=== PATIENT | female | born 1955 | race Caucasian/White ===

== ENCOUNTER 2017-02-01 11:00 | Day surgery (SDC) | payer BC ==
[2017-02-01] MEDS ORDERED: Gatifloxacin 0.5% Ophth Soln 2.5 ML Bot EYERT SCH (11:15)
[2017-02-01] MEDS ORDERED: Sodium Chloride 0.9% 5 ML Syringe FLUSH PRN (11:15)
[2017-02-01] MEDS ORDERED: Lactated Ringers 1,000 ML IV SCH (11:15)
[2017-02-01] MEDS: Cyclopentolate 1% Opth Soln 2 ML Bottle EYERT SCH ×3 (12:11→12:53)
[2017-02-01] MEDS: Phenylephrine 10% Ophth Soln 5 ML Bot EYERT SCH ×3 (12:18→13:10)
[2017-02-01] MEDS ORDERED: Water For Irrigation,Sterile 1,500 ML Container IRR ONE (14:24)
[2017-02-01] MEDS ORDERED: Balanced Salt Solution Plus Ophth Irrig 500 ML Bottle IOCULAR ONE (14:24)
[2017-02-01] MEDS ORDERED: Balanced Salt Solution Ophth Irrig 15 ML Bottle EYERT ONE (14:24)
[2017-02-01] MEDS ORDERED: EPINEPHrine 1 MG/ML SDV ONE (14:25)
[2017-02-01] MEDS ORDERED: Dexamethasone/Neomycin/Polymyxin B Ophth Oint 3.5 GM Tube EYERT ONE (14:25)
[2017-02-01] MEDS ORDERED: Carbachol 0.01% Intraocular 1.5 ML Vial EYERT ONE (14:25)
[2017-02-01] MEDS ORDERED: Tetracaine 0.5% 2 ML Bottle EYEBOTH ONE (14:25)
[2017-02-01] MEDS ORDERED: Hyaluronate Sodium 1% 0.85 ML Syringe IOCULAR ONE (14:26)
[2017-02-01] MEDS ORDERED: Lidocaine 1% 10 ML MDV INJECT ONE (14:26)
[2017-02-01] MEDS ORDERED: Lidocaine 2% with EPINEPHrine 1:100,000 20 ML MDV INJECT ONE (14:26)
[2017-02-01 14:39] VITALS: BP 138/58
--- NOTE | 2017-02-02 09:51 | OR ---
DATE OF SURGERY: 02/01/2017 SURGEON: Santiago Mcdaniels MD PREOPERATIVE DIAGNOSIS: Cataract, right eye. POSTOPERATIVE DIAGNOSIS: Cataract, right eye. OPERATION PERFORMED: Phacoemulsification with posterior chamber lens insertion, right eye. FINDINGS: The patient was taken to the operating room where appropriate anesthesia, sedation and monitoring were provided. A retrobulbar block was given on the right side. The eye was massaged and was found to be appropriately soft. The eye and eyelids were then prepped and draped in the usual sterile manner. A lid speculum was placed. A micro sharp blade was used to enter the anterior chamber inside the limbus superior-temporally. Xylocaine was irrigated into the eye at this site. Healon was irrigated into the eye through this site. Then using a 2.85 mm corneal blade an entry was made into the anterior chamber just inside the limbus temporally. Healon was again irrigated into the eye. Then using a cystitome, the anterior capsulorrhexis was created. The lens nucleus was hydrodissected using a 27 gauge cannula and balanced salt solution. The phacoemulsification unit was introduced through the temporal site and the Girma spatula through the superior temporal site. In so doing, the lens nucleus was phacoemulsified. The cortical fragments of the lens were removed using the irrigation aspiration unit. The posterior capsule was polished. Healon was irrigated into the eye. The posterior chamber lens was inserted and rotated into position inside the capsular bag. The Healon was irrigated out of the eye. Miostat was irrigated into the eye and the pupil rounded nicely. A single interrupted 10-0 Nylon suture was placed through the temporal corneal incision site. Balanced salt solution was irrigated into the eye. The wound was tested and found to be tight. Maxitrol ointment was placed into the patient's right eye. The eyelids were closed and an eye patch and maldonado shield were placed. The patient left the operating room in good condition. /[id number]/MODL
== END 2017-02-01 14:58 | disposition home or self-care (01) ==
LOC: KA.SDS 11:00
PROVIDERS: ATTEND Ophthalmology
DX: H26.9 Unspecified cataract (principal); I25.10 Atherosclerotic heart disease of native coronary artery without angina pectoris; K21.9 Gastro-esophageal reflux disease without esophagitis; I10 Essential (primary) hypertension; Z88.1 Allergy status to other antibiotic agents; Z88.0 Allergy status to penicillin; Z88.8 Allergy status to other drugs, medicaments and biological substances; Z79.899 Other long term (current) drug therapy; F17.200 Nicotine dependence, unspecified, uncomplicated
CPT/HCPCS: 66984; A9270; J0171; J7120; V2632

== ENCOUNTER 2019-11-17 07:04 | Emergency (ER) | payer BC ==
[2019-11-17 07:20] VITALS: BP 154/79; PULSE 70
--- NOTE | 2019-11-17 07:29 | EDM.PDOC ---
ED HPI GENERAL MEDICAL PROBLEM - General Chief Complaint: General Stated Complaint: dizziness Time Seen by Provider: 11/17/19 07:29 Source of Information: Reports: Patient History Limitations: Reports: No Limitations - History of Present Illness INITIAL COMMENTS - FREE TEXT/NARRATIVE: Awoke this morning as usual, taking daily medications. States dizziness was noted and worsened with positioning, predominantly looking down. Has been experiencing some laryngitis this past week with voice returning the past couple days, questionings seasonal allergy issues for which she takes an [id number] medication nightly. She has had some postnasal drip but not truly what would be considered sinus infection type drainage. She denies any palpitations acknowledging a sinus arrhythmia but it does not seem to have been bothering her lately. She denies any issues with dehydration risks as she states she has had good intake and has not been active outside in the recent heat. Denies any pain, no headache, no chest pain or shortness of breath. Has not used nebulizer since last winter for a bronchitis issue. Is somewhat question aspects of allergy component feeling full in her head as well as the laryngitis event resolving. 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 Onset: Today, Sudden Duration: Minutes: Location: Reports: Head Quality: Reports: Other Severity: Moderate Improves with: Reports: None Worsens with: Reports: Movement Associated Symptoms: Reports: No Other Symptoms - Related Data Allergies Allergy/AdvReac Type Severity Reaction Status Date / Time NEERAJ Inhibitors Allergy UNKNOWN Verified 11/17/19 07:21 azithromycin Allergy Rash Verified 11/17/19 07:21 cefdinir Allergy UNKNOWN Verified 11/17/19 07:21 clindamycin Allergy Itching Verified 11/17/19 07:21 nitrofurantoin Allergy UNKOWN Verified 11/17/19 07:21 [From Macrobid] Penicillins Allergy Rash Verified 11/17/19 07:21 sulfamethoxazole Allergy Rash Verified 11/17/19 07:21 [From Bactrim] trimethoprim [From Bactrim] Allergy Rash Verified 11/17/19 07:21 Home Meds: Home Meds Albuterol [IJD: Albuterol] 2.5 mg INH Q4H PRN 01/31/17 [History] Clobetasol Propionate [Temovate] 30 gm TP TID PRN 01/31/17 [History] L.acidoph,Paracasei, B.lactis [Probiotic] 1 each PO DAILY 01/31/17 [History] Losartan Potassium 100 mg PO DAILY 01/31/17 [History] Nystatin [Nystatin Crm] 15 gm TOP TID PRN 01/31/17 [History] Omeprazole 20 mg PO DAILY 01/31/17 [History] Triamcinolone Acetonide [Triamcinolone Acetonide 0.1% Crm] 15 gm TOP TID PRN 01/31/17 [History] cloNIDine [Catapres] 0.1 mg PO BID 04/13/19 [History] Meclizine HCl 25 mg PO Q6HR PRN 7 Days #20 tablet 11/17/19 [Rx] Ondansetron [Zofran ODT] 4 mg PO Q6H PRN 7 Days #20 tab.dis 11/17/19 [Rx] Past Medical History HEENT History: Reports: Allergic Rhinitis, Cataract, Impaired Vision Cardiovascular History: Reports: Hypertension Respiratory History: Reports: Bronchitis, Recurrent Gastrointestinal History: Reports: Colon Polyp, GERD Genitourinary History: Reports: UTI, Recurrent 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 History: Reports: None Dermatologic History: Reports: Eczema - Infectious Disease History Infectious Disease History: Reports: None - Past Surgical History HEENT Surgical History: Reports: None Cardiovascular Surgical History: Reports: None GI Surgical History: Reports: Colonoscopy Female Surgical History: Reports: None Dermatological Surgical History: Reports: None - Past Imaging History Past Imaging History: Reports: Xray Social & Family History - Family History Family Medical History: Noncontributory - Caffeine Use Caffeine Use: Reports: Coffee ED ROS GENERAL - Review of Systems Review Of Systems: Comprehensive ROS is negative, except as noted in HPI. ED EXAM, GENERAL - Physical Exam Exam: See Below Free Text/Narrative:: Bilateral Nilan Barany testing completed, negative for inducing any nystagmus. When returning to seated position mild dizziness with nausea occurs. PERRLA no icterus no injection, EOM intact. No noted visual deficits or changes. General Appearance: Alert, WD/WN, No Apparent Distress Ears: Normal External Exam, Normal Canal, Hearing Grossly Normal. No: Normal TMs (Mildly retracted no infection) Nose: Normal Inspection, Normal Mucosa, No Blood Throat/Mouth: Normal Inspection, Normal Lips, Normal Teeth, Normal Gums, Normal Oropharynx, Normal Voice, No Airway Compromise Head: Atraumatic, Normocephalic Neck: Normal Inspection, Supple, Non-Tender, Full Range of Motion Respiratory/Chest: No Respiratory Distress, Lungs Clear, Normal Breath Sounds, No Accessory Muscle Use, Chest Non-Tender Cardiovascular: Normal Peripheral Pulses, Regular Rate, Rhythm, No Edema, No Gallop, No JVD, No Murmur, No Rub GI/Abdominal: Normal Bowel Sounds, Soft, Non-Tender, No Organomegaly, No Distention, No Mass, Pelvis Stable (Female) Exam: Deferred Rectal (Female) Exam: Deferred Back Exam: Full Range of Motion Extremities: Normal Inspection, Normal Range of Motion, Non-Tender, Normal Capillary Refill, No Pedal Edema Neurological: Alert, Oriented, CN II-XII Intact, Normal Cognition, Normal Gait, Normal Reflexes, No Motor/Sensory Deficits Psychiatric: Normal Affect, Normal Mood Skin Exam: Warm, Dry, Intact, Normal Color, No Rash Lymphatic: No Adenopathy Course - Vital Signs Last Recorded V/S: Last Vital Signs Temp 36.6 C 11/17/19 07:16 Pulse 70 11/17/19 07:16 Resp 18 11/17/19 07:16 BP 154/79 H 11/17/19 07:16 Pulse Ox 98 11/17/19 07:16 - Orders/Labs/Meds Orders: Active Orders 24 hr Category Date Time Status EKG Documentation Completion [RC] ASDIRECTED Care 11/17/19 07:37 Active Peripheral IV Care [RC] . DIRECTED Care 11/17/19 07:38 Active Sodium Chloride 0.9% [Normal Saline] 1,000 ml Med 11/17/19 07:45 Active IV ASDIRECTED Sodium Chloride 0.9% [Saline Flush] Med 11/17/19 07:38 Active 10 ml FLUSH Q8HR PRN Peripheral IV Insertion Adult [OM.PC] Routine Oth 11/17/19 07:38 Ordered EKG 12 Lead [EK] Stat Ther 11/17/19 07:36 Ordered Medication Orders Sodium Chloride (Normal Saline) 1,000 mls @ 150 mls/hr IV ASDIRECTED SREEKANTH Last Admin: 11/17/19 07:51 Dose: 150 mls/hr Documented by: CIELO Sodium Chloride (Saline Flush) 10 ml FLUSH Q8HR PRN PRN Reason: keep vein open Last Admin: 11/17/19 07:57 Dose: 10 ml Documented by: CIELO Labs: Laboratory Tests 11/17/19 11/17/19 11/17/19 Range/Units 07:42 07:42 08:25 WBC 8.39 (5.00-10.00) 10^3/uL RBC 5.09 (3.80-5.50) 10^6/uL Hgb 14.7 (12.0-16.0) g/dL Hct 45.3 (37.0-47.0) % MCV 89.0 (82.0-92.0) fL MCH 28.9 (27.0-31.0) pg MCHC 32.5 (32.0-36.0) g/dL RDW 13.6 (11.5-14.5) % Plt Count 337 (150-400) 10^3/uL MPV 9.4 (7.4-10.4) fL Immature Gran % (Auto) 0.2 (0.0-5.0) % Neut % (Auto) 66.0 (50.0-70.0) % Lymph % (Auto) 23.8 (20.0-40.0) % [place] % (Auto) 5.2 (2.0-8.0) % Eos % (Auto) 4.3 H (1.0-3.0) % Baso % (Auto) 0.5 (0.0-1.0) % Neut # (Auto) 5.53 (2.50-7.00) 10^3/uL Lymph # (Auto) 2.00 (1.00-4.00) 10^3/uL [place] # (Auto) 0.44 (0.10-0.80) 10^3/uL Eos # (Auto) 0.36 H (0.10-0.30) 10^3/uL Baso # (Auto) 0.04 (0.00-0.10) 10^3/uL Immature Gran # (Auto) 0.02 (0.00-0.50) 10^3/uL Sodium 142 (136-145) mmol/L Potassium 3.8 (3.3-5.3) mmol/L Chloride 107 (98-115) mmol/L Carbon Dioxide 26.2 (21.0-32.0) mmol/L Anion Gap 12.6 (5-15) mmol/L BUN 16 (6-25) mg/dL Creatinine 0.69 (0.51-1.17) mg/dL Est Cr Clr Drug Dosing 72.06 mL/min Estimated GFR (MDRD) > 60 mL/min Glucose 116 H (75 - 99) mg/dL Calcium 9.0 (8.7-10.3) mg/dL Total Bilirubin 0.4 (0.2-1.0) mg/dL AST 11 L (15-37) U/L ALT 17 (12-78) U/L Alkaline Phosphatase 92 (46-116) IU/L Creatine Kinase 41 (26-276) U/L CK-MB (CK-2) 1.00 (0.00-4.30) ng/mL Troponin I < 0.04 (0.00-0.070) ng/mL Total Protein 6.8 (6.4-8.2) g/dL Albumin 3.34 (3.00-4.80) g/dL Specimen Type Urincc Urine Color Yellow (YELLOW) Urine Appearance Clear (CLEAR) Urine pH 6.5 (5.0-9.0) Ur Specific [place] 1.025 (1.005-1.030) Urine Protein Negative (NEGATIVE) mg/dL Urine Glucose (UA) Negative (NEGATIVE) mg/dL Urine Ketones Negative (NEGATIVE) mg/dL Urine Occult Blood Negative (NEGATIVE) Urine Nitrite Negative (NEGATIVE) Urine Bilirubin Negative (NEGATIVE) Urine Urobilinogen 0.2 (0.2-1.0) E.U./dL Ur Leukocyte Esterase Negative (NEGATIVE) Meds: Medications Generic Name Dose Route Start Last Admin Trade Name Freq PRN Reason Stop Dose Admin Sodium Chloride 1,000 mls @ 150 mls/hr 11/17/19 07:45 11/17/19 07:51 Normal Saline IV 150 mls/hr ASDIRECTED SREEKANTH Administration Sodium Chloride 10 ml 11/17/19 07:38 11/17/19 07:57 Saline Flush FLUSH 10 ml Q8HR PRN Administration keep vein open Discontinued Medications Generic Name Dose Route Start Last Admin Trade Name Freq PRN Reason Stop Dose Admin Ondansetron HCl 4 mg 11/17/19 07:40 11/17/19 07:51 Zofran IVPUSH 11/17/19 07:41 4 mg ONETIME ONE Administration - Re-Assessments/Exams Free Text/Narrative Re-Assessment/Exam: 11/17/19 08:16 Has improvement with ondansetron and IV fluid. Resting supine awaiting lab analysis Departure - Departure Time of Disposition: 09:04 Disposition: Home, Self-Care 01 Condition: Good Clinical Impression: Dizziness of unknown cause, Nausea - Discharge Information *PRESCRIPTION DRUG MONITORING PROGRAM REVIEWED*: Not Applicable *COPY OF PRESCRIPTION DRUG MONITORING REPORT IN PATIENT BETHEL: Not Applicable Referrals: Reva Castillo MD [Primary Care Provider] - Forms: ED Department Discharge Additional Instructions: Prescription for meclizine and Zofran have been sent to your pharmacy. Use these as needed for your dizziness and nausea. Continue all your other medications as directed. Make sure you maintain good fluid intake. Avoid any risk of dehydration by limiting your activity outside over the weekend. Continue your sinus irrigation and your allergy medication treatments Contact the clinic for follow-up, and specifically if sinus rinse appears to be coming of an infected nature. Sepsis Event Note (ED) - Evaluation Sepsis Screening Result: No Definite Risk - Focused Exam Vital Signs: Vital Signs Temp Pulse Resp BP Pulse Ox 11/17/19 07:16 36.6 C 70 18 154/79 H 98 - Problem List & Annotations (1) Dizziness of unknown cause SNOMED Code(s): 359607327 Code(s): R42 - DIZZINESS AND GIDDINESS Status: Acute Priority: High Current Visit: No Onset Date: ~11/17/19 (2) Nausea SNOMED Code(s): 324921703 Code(s): R11.0 - NAUSEA Status: Acute Priority: Medium Current Visit: No Onset Date: ~11/17/19 - Problem List Review Problem List Initiated/Reviewed/Updated: Yes - My Orders Last 24 Hours: My Active Orders 11/17/19 07:36 EKG 12 Lead [EK] Stat 11/17/19 07:37 EKG Documentation Completion [RC] ASDIRECTED 11/17/19 07:38 Peripheral IV Care [RC] . DIRECTED Sodium Chloride 0.9% [Saline Flush] 10 ml FLUSH Q8HR PRN Peripheral IV Insertion Adult [OM.PC] Routine 11/17/19 07:45 Sodium Chloride 0.9% [Normal Saline] 1,000 ml IV ASDIRECTED - Assessment/Plan Last 24 Hours: My Active Orders 11/17/19 07:36 EKG 12 Lead [EK] Stat 11/17/19 07:37 EKG Documentation Completion [RC] ASDIRECTED 11/17/19 07:38 Peripheral IV Care [RC] . DIRECTED Sodium Chloride 0.9% [Saline Flush] 10 ml FLUSH Q8HR PRN Peripheral IV Insertion Adult [OM.PC] Routine 11/17/19 07:45 Sodium Chloride 0.9% [Normal Saline] 1,000 ml IV ASDIRECTED Plan: Prescription for meclizine and Zofran have been sent to your pharmacy. Use th nicolás as needed for your dizziness and nausea. Continue all your other medications as directed. Make sure you maintain good fluid intake. Avoid any risk of dehydration by limiting your activity outside over the weekend. Continue your sinus irrigation and your allergy medication treatments Contact the clinic for follow-up, and specifically if sinus rinse appears to be coming of an infected nature.
[2019-11-17] MEDS: Sodium Chloride 0.9% 1,000 ML IV SCH (07:51)
[2019-11-17] MEDS: Ondansetron 4 MG/2 ML SDV IVPUSH ONE (07:51)
[2019-11-17] MEDS: Sodium Chloride 0.9% 10 ML Syringe FLUSH PRN (07:57)
[2019-11-17 08:42] LABS: ANION GAP 12.6 mmol/L (5-15); CHLORIDE,CL 107 mmol/L (98-115); SODIUM,NA 142 mmol/L (136-145)
== END 2019-11-17 09:15 | disposition home or self-care (01) ==
LOC: KA.ED 07:04
DX: R42 Dizziness and giddiness (principal); R11.0 Nausea; I10 Essential (primary) hypertension; K21.9 Gastro-esophageal reflux disease without esophagitis; Z79.899 Other long term (current) drug therapy; Z88.0 Allergy status to penicillin; Z88.2 Allergy status to sulfonamides; Z88.1 Allergy status to other antibiotic agents; Z88.8 Allergy status to other drugs, medicaments and biological substances
CPT/HCPCS: 80053; 81003; 82550; 82553; 84484; 85025; 93005; 96361; 96374; 99284; 99284-25; J2405; J7030

== ENCOUNTER 2020-12-22 11:16 | Emergency (ER) | payer MEDICARE, BC ==
[2020-12-22] MEDS ORDERED: Dexamethasone 4 MG/ML SDV IVPUSH ONE (11:34)
[2020-12-22] MEDS ORDERED: Sodium Chloride 0.9% 10 ML Syringe FLUSH PRN (11:34)
--- NOTE | 2020-12-22 11:38 | EDM.PDOC ---
ED HPI GENERAL MEDICAL PROBLEM - General Chief Complaint: Neuro Symptoms/Deficits Stated Complaint: CONFUSION WITH NEWLY DIAGNOSED BRAIN MASS Time Seen by Provider: 12/22/20 11:25 Source of Information: Reports: Patient History Limitations: Reports: No Limitations - History of Present Illness INITIAL COMMENTS - FREE TEXT/NARRATIVE: 65 YO WF PRESENTS TO ER BY EMS AFTER BEING NOTIFIED BY CLINIC SHE NEEDS FURTHER EVALUATION OF A NEWLY DIAGNOSED BRAIN MASS. PT INITIALLY WAS SEEN IN CLINIC THIS AM COMPLAINING OF MILD CONFUSION AND RIGHT SIDED WEAKNESS FOR THE LAST 2 WEEKS. PT DENIES HEADACHE, NO NAUSEA OR VOMITING. PT DENIES ANY BOWEL OR BLADDER DYSFUNCTION. PT IS A LONG TIME TOBACCO SMOKER. PT CURRENTLY ALERT AND ORIENTED X 4. PT REPORTS SHE HAS TO CONCENTRATE IN ORDER TO MOVE RIGHT UPPER AND LOWER EXTREMITIES. GCS-15. PT DENIES ANY KNOWN SEIZURES OR SYNCOPAL EPISODES OVER THE LAST 2 WEEKS. Duration: Week(s): (2), Constant. No: Getting Worse Location: Reports: Head, Generalized Severity: Moderate Improves with: Reports: None Worsens with: Reports: None Associated Symptoms: Reports: No Other Symptoms, Confusion, Cough, Weakness. Denies: Chest Pain, Fever/Chills, Headaches, Malaise, Nausea/Vomiting, Seizure, Shortness of Breath Treatments TRANSPORTATION DIRECTOR: Reports: See EMS Report - Related Data Allergies Allergy/AdvReac Type Severity Reaction Status Date / Time NEERAJ Inhibitors Allergy UNKNOWN Verified 11/17/19 07:21 azithromycin Allergy Rash Verified 11/17/19 07:21 cefdinir Allergy UNKNOWN Verified 11/17/19 07:21 clindamycin Allergy Itching Verified 11/17/19 07:21 nitrofurantoin Allergy UNKOWN Verified 11/17/19 07:21 [From Macrobid] Penicillins Allergy Rash Verified 11/17/19 07:21 sulfamethoxazole Allergy Rash Verified 11/17/19 07:21 [From Bactrim] trimethoprim [From Bactrim] Allergy Rash Verified 11/17/19 07:21 Home Meds: Home Meds Albuterol [IJD: Albuterol] 2.5 mg INH Q4H PRN 01/31/17 [History] Clobetasol Propionate [Temovate] 30 gm TP TID PRN 01/31/17 [History] L.acidoph,Paracasei, B.lactis [Probiotic] 1 each PO DAILY 01/31/17 [History] Losartan Potassium 100 mg PO DAILY 01/31/17 [History] Nystatin [Nystatin Crm] 15 gm TOP TID PRN 01/31/17 [History] Omeprazole 20 mg PO DAILY 01/31/17 [History] Triamcinolone Acetonide [Triamcinolone Acetonide 0.1% Crm] 15 gm TOP TID PRN 01/31/17 [History] cloNIDine [Catapres] 0.1 mg PO BID 04/13/19 [History] Meclizine HCl 25 mg PO Q6HR PRN 7 Days #20 tablet 11/17/19 [Rx] Ondansetron [Zofran ODT] 4 mg PO Q6H PRN 7 Days #20 tab.dis 11/17/19 [Rx] Past Medical History HEENT History: Reports: Allergic Rhinitis, Cataract, Impaired Vision Cardiovascular History: Reports: Hypertension Respiratory History: Reports: Bronchitis, Recurrent Gastrointestinal History: Reports: Colon Polyp, GERD Genitourinary History: Reports: UTI, Recurrent 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: Reports: None Dermatologic History: Reports: Eczema - Infectious Disease History Infectious Disease History: Reports: None - Past Surgical History HEENT Surgical History: Reports: None Cardiovascular Surgical History: Reports: None GI Surgical History: Reports: Colonoscopy Female Surgical History: Reports: None Dermatological Surgical History: Reports: None - Past Imaging History Past Imaging History: Reports: Xray Social & Family History - Family History Family Medical History: No Pertinent Family History - Caffeine Use Caffeine Use: Reports: Coffee ED ROS GENERAL - Review of Systems Review Of Systems: See Below Constitutional: Reports: Weakness HEENT: Reports: No Symptoms Respiratory: Reports: No Symptoms Cardiovascular: Reports: No Symptoms Endocrine: Reports: No Symptoms GI/Abdominal: Reports: No Symptoms : Reports: No Symptoms Musculoskeletal: Reports: No Symptoms Skin: Reports: No Symptoms Neurological: Reports: Confusion, Weakness. Denies: Trouble Speaking, Change in Speech ED EXAM, NEURO - Physical Exam Exam: See Below Exam Limited By: No Limitations General Appearance: Alert, WD/WN, No Apparent Distress Eye Exam: Bilateral Eye: EOMI, PERRL Throat/Mouth: Normal Inspection, Normal Lips, Normal Teeth, Normal Gums, Normal Oropharynx, Normal Voice, No Airway Compromise Head Exam: Atraumatic, Normocephalic Neck: Normal Inspection, Supple, Non-Tender, Full Range of Motion Respiratory/Chest: No Respiratory Distress, Lungs Clear, Normal Breath Sounds, No Accessory Muscle Use, Chest Non-Tender Cardiovascular: Normal Peripheral Pulses, Regular Rate, Rhythm, No Edema, No Gallop, No JVD, No Murmur, No Rub GI/Abdominal: Normal Bowel Sounds, Soft, Non-Tender, No Organomegaly, No Distention, No Abnormal Bruit, No Mass Neurological: Alert, Normal Mood/Affect, Normal Dorsiflexion, CN II-XII Intact, Normal Plantar Flexion, Normal Gait, Oriented x 3, Abnormal Motor (RIGHT UPPER AND LOWER EXTREMITIES 3/5 ) Extremities: Normal Inspection, Normal Range of Motion, Non-Tender, No Pedal Edema, Normal Capillary Refill Psychiatric: Normal Affect, Depressed Mood Skin Exam: Warm, Dry, Intact, Normal Color, No Rash Course - Vital Signs Last Recorded V/S: Last Vital Signs Temp 97.1 F 12/22/20 11:22 Pulse 99 12/22/20 11:22 Resp 13 12/22/20 11:22 BP 153/87 H 12/22/20 11:22 Pulse Ox 97 12/22/20 11:22 - Orders/Labs/Meds Orders: Active Orders 24 hr Category Date Time Status Peripheral IV Care [RC] . DIRECTED Care 12/22/20 11:34 Ordered Chest 2V [CR] Stat Exams 12/22/20 11:34 Ordered COMPREHENSIVE METABOLIC PN,CMP [CHEM] Stat Lab 12/22/20 11:34 Ordered Sodium Chloride 0.9% @ 125 MLS/HR (1000ml) Med 12/22/20 11:45 Ordered Sodium Chloride 0.9% [Normal Saline] 1,000 ml IV ASDIRECTED Sodium Chloride 0.9% [Saline Flush] Med 12/22/20 11:34 Ordered 10 ml FLUSH Q8HR PRN Peripheral IV Insertion Adult [OM.PC] Routine Oth 12/22/20 11:34 Ordered Medication Orders Sodium Chloride (Normal Saline) 1,000 mls @ 125 mls/hr IV ASDIRECTED SREEKANTH Last Admin: 12/22/20 11:47 Dose: 125 mls/hr Documented by: BARBIE Sodium Chloride (Sodium Chloride 0.9% 10 Ml Syringe) 10 ml FLUSH Q8HR PRN PRN Reason: keep vein open Last Admin: 12/22/20 11:56 Dose: 10 ml Documented by: BARBIE Labs: Laboratory Tests 12/22/20 Range/Units 11:40 WBC 9.01 (5.00-10.00) 10^3/uL RBC 5.45 (3.80-5.50) 10^6/uL Hgb 15.4 (12.0-16.0) g/dL Hct 47.1 H (37.0-47.0) % MCV 86.4 (82.0-92.0) fL MCH 28.3 (27.0-31.0) pg MCHC 32.7 (32.0-36.0) g/dL RDW 13.4 (11.5-14.5) % Plt Count 351 (150-400) 10^3/uL MPV 9.3 (7.4-10.4) fL Immature Gran % (Auto) 0.1 (0.0-5.0) % Neut % (Auto) 71.7 H (50.0-70.0) % Lymph % (Auto) 21.3 (20.0-40.0) % [place] % (Auto) 5.7 (2.0-8.0) % Eos % (Auto) 0.6 L (1.0-3.0) % Baso % (Auto) 0.6 (0.0-1.0) % Neut # (Auto) 6.47 (2.50-7.00) 10^3/uL Lymph # (Auto) 1.92 (1.00-4.00) 10^3/uL [place] # (Auto) 0.51 (0.10-0.80) 10^3/uL Eos # (Auto) 0.05 L (0.10-0.30) 10^3/uL Baso # (Auto) 0.05 (0.00-0.10) 10^3/uL Immature Gran # (Auto) 0.01 (0.00-0.50) 10^3/uL Meds: Medications Generic Name Dose Route Start Last Admin Trade Name Freq PRN Reason Stop Dose Admin Sodium Chloride 1,000 mls @ 125 mls/hr 12/22/20 11:45 12/22/20 11:47 Normal Saline IV 125 mls/hr ASDIRECTED SREEKANTH Administration Sodium Chloride 10 ml 12/22/20 11:34 12/22/20 11:56 Sodium Chloride 0.9% 10 Ml Syringe FLUSH 10 ml Q8HR PRN Administration keep vein open Discontinued Medications Generic Name Dose Route Start Last Admin Trade Name Freq PRN Reason Stop Dose Admin Dexamethasone 10 mg 12/22/20 11:34 12/22/20 11:50 Dexamethasone 4 Mg/Ml Sdv IVPUSH 12/22/20 11:35 10 mg ONETIME ONE Administration - Radiology Interpretation Free Text/Narrative:: CT BRAIN- LEFT FRONTAL LOBE MASS 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 EDEMA IN LEFT FRONTAL LOBE WITH 6MM OF MIDLINE SHIFT OF AT THE SEPTUM Departure - Departure Time of Disposition: 12:01 Disposition: DC/Tfer to Acute Hospital 02 Condition: Serious Clinical Impression: Left frontal lobe mass - Discharge Information Referrals: Reva Castillo MD [Primary Care Provider] - Forms: ED Department Discharge, Interfacility Transfer EMTALA Sepsis Event Note (ED) - Evaluation Sepsis Screening Result: No Definite Risk - Focused Exam Vital Signs: Vital Signs Temp Pulse Resp BP Pulse Ox 12/22/20 11:22 97.1 F 99 13 153/87 H 97 - My Orders Last 24 Hours: My Active Orders 12/22/20 11:34 Peripheral IV Care [RC] . DIRECTED Chest 2V [CR] Stat COMPREHENSIVE METABOLIC PN,CMP [CHEM] Stat Sodium Chloride 0.9% [Saline Flush] 10 ml FLUSH Q8HR PRN Peripheral IV Insertion Adult [OM.PC] Routine 12/22/20 11:45 Sodium Chloride 0.9% @ 125 MLS/HR (1000ml) Sodium Chloride 0.9% [Normal Saline] 1,000 ml IV ASDIRECTED - Assessment/Plan Last 24 Hours: My Active Orders 12/22/20 11:34 Peripheral IV Care [RC] . DIRECTED Chest 2V [CR] Stat COMPREHENSIVE METABOLIC PN,CMP [CHEM] Stat Sodium Chloride 0.9% [Saline Flush] 10 ml FLUSH Q8HR PRN Peripheral IV Insertion Adult [OM.PC] Routine 12/22/20 11:45 Sodium Chloride 0.9% @ 125 MLS/HR (1000ml) Sodium Chloride 0.9% [Normal Saline] 1,000 ml IV ASDIRECTED Assessment:: 1. LEFT FRONTAL LOBE MASS SUGGESTIVE OF NEOPLASM Plan: 1. TRANSFER TO [facility] ACCEPTING @12:00 2. SUPPORTIVE CARE 3. NS@125CC/HR
[2020-12-22] MEDS ORDERED: Sodium Chloride 0.9% 1,000 ML IV SCH (11:45)
[2020-12-22 12:09] LABS: ANION GAP 15.8 mmol/L (5-15); CHLORIDE,CL 101 mmol/L (98-107); SODIUM,NA 138 mmol/L (136-145)
--- NOTE | 2020-12-22 12:12 | CR ---
[id number] RAD/RAD Chest PA And Lateral EXAM: RAD Chest PA And Lateral CLINICAL DATA: CHANGE IN MENTAL STATUS COMPARISON: CORRELATION IS MADE WITH AUGUST 11, 2015 FINDINGS: There appears to be a right suprahilar mass. Contrast CT chest is suggested The lungs are otherwise clear The cardiac silhouette is stable IMPRESSION: RIGHT SUPRAHILAR MASS Jose Hagan MD 12/22/20 [id number] Thank you for allowing us to participate in the care of your patient.
[2020-12-22 12:17] VITALS: BP 150/79; PULSE 72
== END 2020-12-22 12:30 ==
LOC: KA.ED 11:16
DX: G93.89 Other specified disorders of brain (principal); I10 Essential (primary) hypertension; K21.9 Gastro-esophageal reflux disease without esophagitis; Z88.1 Allergy status to other antibiotic agents; Z88.0 Allergy status to penicillin; Z88.2 Allergy status to sulfonamides; Z88.8 Allergy status to other drugs, medicaments and biological substances; Z79.899 Other long term (current) drug therapy; G45.9 Transient cerebral ischemic attack, unspecified
CPT/HCPCS: 36415; 70450; 71046; 80053; 85025; 96374; 99284; 99285-25; J1100; J7030

== ENCOUNTER 2021-05-10 11:05 | Observation (INO) | payer MEDICARE, BC ==
[2021-05-10] MEDS ORDERED: Sodium Chloride 0.9% 1,000 ML ONE (11:36)
[2021-05-10] MEDS ORDERED: Sodium Chloride 0.9% 1,000 ML IV ONE (11:39)
[2021-05-10 12:41] LABS: ANION GAP 17.5 mmol/L (5-15)
[2021-05-10] MEDS ORDERED: Docusate Sodium 100 MG Cap PO PRN (13:26)
[2021-05-10] MEDS ORDERED: Magnesium Hydroxide 400 MG/5 ML Susp 30 ML Cup PO PRN (13:26)
[2021-05-10] MEDS ORDERED: Acetaminophen 325 MG Tab PO PRN (13:26)
[2021-05-10] MEDS ORDERED: Sodium Chloride 0.9% 100 ML IV SCH (14:00)
[2021-05-10] MEDS: Sodium Chloride 0.9% 1,000 ML IV SCH ×2 (15:13→23:23)
[2021-05-10] MEDS: Loperamide 2 MG Cap PO PRN (15:13)
[2021-05-11] MEDS: Loperamide 2 MG Cap PO PRN ×2 (01:24→07:27)
[2021-05-11] MEDS ORDERED: Ondansetron 4 MG/2 ML SDV IVPUSH PRN (04:25)
[2021-05-11 05:09] VITALS: BP 123/68; PULSE 98
[2021-05-11] MEDS: Sodium Chloride 0.9% 1,000 ML IV SCH (07:27)
[2021-05-11] MEDS ORDERED: CLOBETASOL PROPIONATE TP PRN (09:17)
[2021-05-11] MEDS ORDERED: Cetirizine 10 MG Tab PO PRN (09:17)
[2021-05-11] MEDS ORDERED: Triamcinolone Acetonide 0.1% Crm 15 GM Tube TOP PRN (09:17)
[2021-05-11] MEDS ORDERED: Lactulose Soln 10 GM/15 ML 30 ML UD Cup PO PRN (09:25)
[2021-05-11] MEDS ORDERED: Prochlorperazine 5 MG Tab PO PRN (09:29)
[2021-05-11] MEDS ORDERED: Folic Acid 1 MG Tab PO SCH (09:30)
[2021-05-11] MEDS ORDERED: Levofloxacin 500 MG Tab PO SCH (09:30)
[2021-05-11] MEDS ORDERED: Pantoprazole 40 MG Tab.CR PO SCH (09:30)
[2021-05-12] MEDS ORDERED: FLUoxetine 10 MG Cap PO SCH (08:00)
[2021-05-12] MEDS ORDERED: Non-Formulary Medication 1 Each (L.Acidoph,Paracasei, B.Lactis [Probiotic] 1 EACH Capsule) PO SCH (09:00)
== END 2021-05-11 11:22 | disposition home or self-care (01) ==
LOC: KA.ED 11:05 → KA.MS 13:26 → UNDOADMOB 13:26
PROVIDERS: ADMIT Physician Assistant; ATTEND Internal Medicine
DX: E86.0 Dehydration (principal); E86.1 Hypovolemia; I95.9 Hypotension, unspecified; R42 Dizziness and giddiness; R53.1 Weakness; I10 Essential (primary) hypertension; K21.9 Gastro-esophageal reflux disease without esophagitis; F17.210 Nicotine dependence, cigarettes, uncomplicated; C34.90 Malignant neoplasm of unspecified part of unspecified bronchus or lung; F32.A Depression, unspecified; Z20.822 Contact with and (suspected) exposure to COVID-19; Z88.8 Allergy status to other drugs, medicaments and biological substances; Z88.0 Allergy status to penicillin; Z88.1 Allergy status to other antibiotic agents; Z88.2 Allergy status to sulfonamides; Z79.899 Other long term (current) drug therapy; Z98.890 Other specified postprocedural states
CPT/HCPCS: 36415; 80053; 83605; 85025; 99285; A9270-GY; G0378; J2405; J7030; U0002

== ENCOUNTER 2021-05-31 08:18 | Emergency (ER) | payer MEDICARE, BC ==
[2021-05-31] MEDS ORDERED: Ondansetron 4 MG/2 ML SDV IVPUSH ONE (08:35)
[2021-05-31] MEDS ORDERED: Sodium Chloride 0.9% 1,000 ML IV ONE ×2 (08:35→10:12)
[2021-05-31] MEDS ORDERED: Loperamide 2 MG Cap PO STA (08:54)
[2021-05-31 09:03] LABS: ANION GAP 15.1 mmol/L (5-15); CHLORIDE,CL 97 mmol/L (98-107); SODIUM,NA 135 mmol/L (136-145)
[2021-05-31] MEDS ORDERED: Sodium Chloride 0.9% 1,000 ML ONE (10:08)
[2021-05-31] MEDS ORDERED: Ondansetron 4 MG Tab.DIS PO PRN (10:56)
[2021-05-31 11:24] VITALS: BP 110/69; PULSE 100
== END 2021-05-31 11:38 | disposition home or self-care (01) ==
LOC: KA.ED 08:18
DX: R11.2 Nausea with vomiting, unspecified (principal); R19.7 Diarrhea, unspecified; I10 Essential (primary) hypertension; K21.9 Gastro-esophageal reflux disease without esophagitis; Z88.8 Allergy status to other drugs, medicaments and biological substances; Z88.1 Allergy status to other antibiotic agents; Z88.0 Allergy status to penicillin; Z88.2 Allergy status to sulfonamides; Z79.899 Other long term (current) drug therapy; Z20.822 Contact with and (suspected) exposure to COVID-19
CPT/HCPCS: 36415; 71046; 80053; 83605; 85025; 96374; 99284; 99284-25; A9270-GY; J2405; J7030; U0002

== ENCOUNTER 2021-06-19 12:35 | Observation (INO) | payer MEDICARE, BC ==
[2021-06-19] MEDS ORDERED: Sodium Chloride 0.9% 1,000 ML IV ONE (13:17)
[2021-06-19] MEDS ORDERED: Sodium Chloride 0.9% 10 ML Syringe FLUSH PRN (13:17)
[2021-06-19] MEDS: Sodium Chloride 0.9% 1,000 ML IV SCH ×2 (15:03→23:26)
[2021-06-19] MEDS ORDERED: Non-Formulary Medication 1 Each (Lactulose 10 GM/15 ML Bottle) PO PRN (16:22)
[2021-06-19] MEDS ORDERED: Cetirizine 10 MG Tab PO PRN (16:22)
[2021-06-19] MEDS ORDERED: PROCHLORPERAZINE MALEATE 10 MG PO PRN (16:22)
[2021-06-19] MEDS ORDERED: Triamcinolone Acetonide 0.1% Crm 15 GM Tube TOP PRN (16:22)
[2021-06-19] MEDS ORDERED: CLOBETASOL PROPIONATE TP PRN (16:22)
[2021-06-19] MEDS ORDERED: OLANZapine 5 MG Tab PO SCH (16:30)
[2021-06-19] MEDS ORDERED: Loperamide 2 MG Cap PO PRN (17:21)
[2021-06-20] MEDS: Sodium Chloride 0.9% 1,000 ML IV SCH ×2 (07:36→23:57)
[2021-06-20] MEDS: Folic Acid 1 MG Tab**OWN MED PO SCH (09:02)
[2021-06-20] MEDS: OMEPRAZOLE 20 MG PO SCH (09:02)
[2021-06-20] MEDS: ACIDOPH PARACASEI B LACTIS PO SCH (09:02)
[2021-06-20] MEDS: Ondansetron 4 MG/2 ML SDV IVPUSH PRN (09:38)
[2021-06-20] MEDS ORDERED: NS + KCl 20mEq/L 1,000 ML IV SCH (10:45)
[2021-06-21] MEDS: Ondansetron 4 MG/2 ML SDV IVPUSH PRN (00:05)
[2021-06-21 08:14] LABS: ANION GAP 12.9 mmol/L (5-15)
[2021-06-21] MEDS: Folic Acid 1 MG Tab**OWN MED PO SCH (10:37)
[2021-06-21] MEDS: ACIDOPH PARACASEI B LACTIS PO SCH (10:38)
[2021-06-21] MEDS: OMEPRAZOLE 20 MG PO SCH (10:38)
[2021-06-21 10:43] VITALS: BP 142/66; PULSE 91
== END 2021-06-21 12:37 | disposition home or self-care (01) ==
LOC: KA.ED 12:35 → KA.MS 13:51
PROVIDERS: ADMIT Physician Assistant Medical; ATTEND Internal Medicine
DX: E83.52 Hypercalcemia (principal); N17.9 Acute kidney failure, unspecified; E87.6 Hypokalemia; K59.00 Constipation, unspecified; E86.0 Dehydration; C34.90 Malignant neoplasm of unspecified part of unspecified bronchus or lung; C79.31 Secondary malignant neoplasm of brain; K21.9 Gastro-esophageal reflux disease without esophagitis; F41.9 Anxiety disorder, unspecified; F32.A Depression, unspecified; Z20.822 Contact with and (suspected) exposure to COVID-19; Z88.8 Allergy status to other drugs, medicaments and biological substances; Z88.1 Allergy status to other antibiotic agents; Z88.0 Allergy status to penicillin; Z88.2 Allergy status to sulfonamides; Z79.899 Other long term (current) drug therapy; Z98.890 Other specified postprocedural states
CPT/HCPCS: 36415; 80048; 80053; 82310; 85025; 96374; 96376; 99217; 99220; 99225; 99284; A9270-GY; G0378; J2405; J3480; J7030; U0002

== ENCOUNTER 2021-10-23 07:52 | Emergency (ER) | payer MEDICARE, BC ==
[2021-10-23] MEDS: Sodium Chloride 0.9% 1,000 ML IV ONE (08:31)
[2021-10-23] MEDS: Ondansetron 4 MG/2 ML SDV IVPUSH ONE (08:31)
[2021-10-23 08:41] LABS: ANION GAP 13.4 mmol/L (5-15); CHLORIDE,CL 105 mmol/L (98-107); SODIUM,NA 141 mmol/L (136-145)
[2021-10-23 08:45] LABS: ESTIMATED GFR 72 mL/min (>=60)
[2021-10-23] MEDS: Morphine 4 MG/ML VIAL IVPUSH ONE ×2 (08:45→09:29)
[2021-10-23] MEDS: HYDROmorphone 1 MG/ML Syringe IVPUSH ONE (10:49)
[2021-10-23 15:22] VITALS: BP 126/70
[2021-10-23 15:32] VITALS: PULSE 78
[2021-10-28] MEDS ORDERED: Iopamidol 755 Mg/ML 75 ML Bottle IVPUSH ONE (09:12)
[2021-10-28] MEDS ORDERED: Sodium Chloride 0.9% 50 ML IV SCH (09:15)
== END 2021-10-23 15:36 ==
LOC: KA.ED 07:52
DX: K80.10 Calculus of gallbladder with chronic cholecystitis without obstruction (principal); I10 Essential (primary) hypertension; K21.9 Gastro-esophageal reflux disease without esophagitis; Z79.899 Other long term (current) drug therapy; Z88.8 Allergy status to other drugs, medicaments and biological substances; Z88.2 Allergy status to sulfonamides; Z72.0 Tobacco use
CPT/HCPCS: 36415; 74177; 80053; 81001; 83690; 85025; 96361; 96374; 96375; 96376; 99284; 99285-25; J1170; J2270; J2405; J7030

== ENCOUNTER 2022-07-01 12:23 | Emergency (ER) | payer MEDICARE, BC ==
[2022-07-01 13:55] VITALS: BP 150/84; PULSE 78
== END 2022-07-01 13:45 | disposition home or self-care (01) ==
LOC: KA.ED 12:23
DX: R56.9 Unspecified convulsions (principal); I10 Essential (primary) hypertension; K21.9 Gastro-esophageal reflux disease without esophagitis; Z88.1 Allergy status to other antibiotic agents; Z79.899 Other long term (current) drug therapy; Z72.0 Tobacco use; Z88.0 Allergy status to penicillin
CPT/HCPCS: 99284